=== PATIENT | male | born 1970 | race Caucasian/White ===

== ENCOUNTER 2016-08-02 15:04 | Emergency (ER) | payer SELFPAY ==
[2016-08-02] MEDS ORDERED: ALPRAZolam 0.25 MG TAB ONE ×2 (15:55→15:56)
[2016-08-02 15:59] LABS: Amphetamine Not Detected (NotDetected); Barbiturates Screen Not Detected (NotDetected); Benzodiazepine Screen Detected (NotDetected); Cocaine Metabolite Screen Not Detected (NotDetected); Medtox Control Line Valid? VALID (VALID); Methadone Not Detected (NotDetected); Methamphetamine Not Detected (NotDetected); Opiate Screen Not Detected (NotDetected); Oxycodone Screen Not Detected (NotDetected); Phencyclidine (PCP) Not Detected (NotDetected); THC/Cannabinoid Screen Not Detected (NotDetected); Tricyclic Screen Not Detected (NotDetected)
--- NOTE | 2016-08-02 16:14 | ERRECORD ---
[facility] EMERGENCY RECORD HPI PSYCHIATRIC (15:31 SHAN) CHIEF COMPLAINT: Patient presents for evaluation of agitation. HISTORIAN: History provided by patient. SEVERITY: Maximum severity of symptoms moderate, Currently symptoms are moderate. ROS (15:32 SHAN) CONSTITUTIONAL: Negative constitutional review of systems, Historian denies chills, denies fever. EYES: Negative eye review of systems. ENT: Negative ears, nose, throat review of systems. CARDIOVASCULAR: Negative cardiovascular review of systems, Historian denies chest pain, denies palpitations. RESPIRATORY: Negative respiratory review of systems, Historian denies cough, denies shortness of breath. GI: Negative gastrointestinal review of systems, Historian denies abdominal pain, denies constipation, denies diarrhea. MUSCULOSKELETAL: Negative musculoskeletal review of systems. SKIN: Negative skin review of systems. NEUROLOGIC: Negative neurologic review of systems. ENDOCRINE: Negative endocrine review of systems. HEMO/LYMPHATIC: Normal hematologic/lymphatic system review. PSYCHIATRIC: Historian reports anxiety, reports emotional lability. NOTES: All other ROS is negative except as listed in HPI. PAST MEDICAL HISTORY MEDICAL HISTORY: Flu vaccine up to date, Tetanus immunization up to date, Pneumococcal vaccine up to date, Past medical history includes history of hypertension, CHRONIC BACK - NEUROPATHY. Renal Disease Stage II. VERIFIED 03/04/16. VERIFIED 06/08/16. (TueAug 02, 2016 15:19 MDEB) MALE SURGICAL HISTORY: Surgical history of cholecystectomy, FUSION L-5/S-1, RIGHT KNEE LAMMY L4-5/ S1 X 2, Surgical history of appendectomy, Surgical history of tonsillectomy. Plate in Right Hand. VERIFIED 03/04/16. VERIFIED 06/08/16. (TueAug 02, 2016 15:19 MDEB) PSYCHIATRIC HISTORY: Psychiatric history includes, anxiety, Notes: DEPRESSION ANGER EXPLOSIVE DO. anxiety. VERIFIED 03/04/16. (TueAug 02, 2016 15:19 MDEB) SOCIAL HISTORY: Patient drinks socially, Patient is a former drug user, Patient currently uses tobacco, smokes cigarettes, Patient smokes 1.5 packs per day, Lives at home, with family, Patient drinks socially, Patient is a former drug user, Patient currently uses tobacco, smokes cigarettes, daily, Patient smokes 1.5 packs per day, Lives at home, with family, Patient is a former drug user, abused marijuana, Drug history notes: k2, Patient currently uses tobacco, smokes cigarettes, daily, Patient smokes 2 packs per day, &a-1R&a+25V*p+0X*t6581V*c202B*c15G*c2P*p-0X&a-25V&a+1R Name: Lenny Muller : 1970 M46 MedRec: [id number] AcctNum: [id number] Prepared: TueAug 02, 2016 16:24 by Interface Page 1 of 4 pMD [facility] EMERGENCY RECORD Lives at home, with family, Patient drinks socially, Patient formerly uses drugs, abuses marijuana, Drug history notes: K2. PT HAS "BEEN CLEAN FOR ABOUT ONE YEAR". Patient currently uses tobacco, Patient smokes 1.5 packs per day. (TueAug 02, 2016 15:19 MDEB) FAMILY HISTORY: Family istory is not significant, Family history is non-contributory to this case. (TueAug 02, 2016 15:19 MDEB) NOTES: I have reviewed and agree with the PMH/PSxH/FamHx/SocHx obtained by the nurse. (15:32 SHAN) KNOWN ALLERGIES codeine (Unconfirmed) codeine sulfate: - TAKES BENADRY WITH IT CURRENT MEDICATIONS No recorded medications VITAL SIGNS (15:17 MDEB) VITAL SIGNS: BP: 154/90, Pulse: 99, Resp: 20, Temp: 98.9 (Oral), Pain: 0, O2 sat: 99 on Room Air, Time: 08/02/2016 15:17. PHYSICAL EXAM (15:32 SHAN) CONSTITUTIONAL: Vital signs reviewed, Patient appears non toxic, Patient alert and oriented to person, place and time, Pt is in no apparent distress. HEAD: Head exam included findings of head atraumatic, normocephalic. EYES: Eye exam included findings of eyelids normal to inspection, Pupils equally round and reactive to light, Extraocular muscles intact. ENT: ENT exam normal, Nose exam normal, no nasal deformity, no bleeding from nares, Pharynx exam normal, Mouth exam normal, mucous membranes moist. NECK: Neck exam included findings of normal range of motion, Trachea midline. RESPIRATORY CHEST: Respiratory and chest exam normal, Breath sounds clear, No wheezing, No rales, Chest exam included findings of chest movement symmetrical, Chest expansion equal. CARDIOVASCULAR: Cardiovascular assessment normal, Cardiovascular exam included findings of heart rate regular rate and rhythm, Heart sounds normal. ABDOMEN MALE: Abdominal exam included findings of abdomen nontender, Bowel sounds normal, no mass, no pulsatile masses, no peritoneal signs, no rigidity, no guarding, no rebound. BACK: Back exam included findings of normal inspection, range of motion normal, no costovertebral angle tenderness. UPPER EXTREMITY: Upper extremity exam included findings of inspection normal, Range of motion normal. LOWER EXTREMITY: Lower extremity exam included findings of inspection normal, Range of motion normal. &a-1R&a+25V*p+0X*z0780J*c202B*c15G*c2P*p-0X&a-25V&a+1R Name: Lenny Muller : 1970 M46 MedRec: [id number] AcctNum: [id number] Prepared: TueAug 02, 2016 16:24 by Interface Page 2 of 4 pMD [facility] EMERGENCY RECORD NEURO: Neuro exam findings include patient oriented to person, place and time, Speech normal, no focal motor deficits, no focal sensory deficits. SKIN: Skin exam included findings of skin warm, dry, and normal in color. LYMPHATIC: Lymphatic exam normal. PSYCHIATRIC: Well oriented, clearly anxious, agitated. MEDICATION ADMINISTRATION SUMMARY Drug Name: Xanax, Dose Ordered: 1 tab(s), Route: Oral, Status: Given, Time: 16:00 08/02/2016, Detailed record available in Medication Service section. DOCTOR NOTES TEXT: Adult male with hx of drug abuse, states 'clean for two years'. Recently provider fired him. Unclear of details. Has been out of meds for two weeks. States his prior psychiatrist is not practicing now. Having increased anger, agitation, and impulses. (15:33 SHAN) Specifically asked and denied self harm ideations. (16:08 SHAN) Explained to patient that it is very important that he not exceed the doseages and that he obtain his future medications from the psychiatrist. (16:19 SHAN) DATA REVIEWED: Lab data reviewed, Old records obtained. (16:08 SHAN) PROBLEM LIST No recorded problems DIAGNOSIS (16:03 SHAN) FINAL: PRIMARY: impulse control disorder, ADDITIONAL: anger management problem, Anxiety. PRESCRIPTION Xanax: TABLET : 1 mg : ORAL : Quantity: 1 Unit: tab(s) Route: ORAL Schedule: See Notes Dispense: 70 May substitute. Refills: No Refills . (16:04 LEONORA) NOTES: 1/2 to 1 three times a day; if needed seventy per month maximum No Refills. (16:04 LEONORA) TEGretol: TABLET : 200 mg : ORAL : Quantity: 1 Unit: tab(s) Route: ORAL Schedule: 3 times a day Dispense: 90 Unit: tab(s) May substitute. Refills: No Refills . (16:05 LEONORA) NOTES: No Refills. (16:05 LEONORA) SINEquan: CAPSULE : 100 mg : ORAL : Quantity: 1 Unit: cap(s) Route: ORAL Schedule: See Notes Dispense: 60 Unit: cap(s) &a-1R&a+25V*p+0X*a9190L*c202B*c15G*c2P*p-0X&a-25V&a+1R Name: Lenny Muller : 1970 6 MedRec: [id number] AcctNum: [id number] Prepared: TueAug 02, 2016 16:24 by Interface Page 3 of 4 pMD [facility] EMERGENCY RECORD May substitute. Refills: No Refills . (16:06 LEONORA) NOTES: 1 or 2 at bedtime No Refills. (16:06 LEONORA) DISPOSITION PATIENT: Disposition Type: Discharge, Disposition: *Discharge Home. (16:03 LEONORA) Patient left the department. (16:21 SEEMA) Hernandez: SEEMA=DENISE Kim, Desi LEA=MD Trivedi Stanley &a-1R&a+25V*p+0X*i1708H*c202B*c15G*c2P*p-0X&a-25V&a+1R Name: Lenny Muller : 1970 6 MedRec: [id number] AcctNum: [id number] Prepared: Zofia Aug 02, 2016 16:24 by Interface Page 4 of 4 pMD MTDD
--- NOTE | 2016-08-02 16:20 | PICIS ---
[facility] EMERGENCY RECORD TRIAGE (TueAug 02, 2016 15:19 MDEB) PATIENT: NAME: Lenny Muller, AGE: 46, GENDER: male, : Sun 1970, TIME OF GREET: TueAug 02, 2016 15:05, PREFERRED LANGUAGE: Cymraes, RACE: WHITE, ETHNICITY: Not or , FALL RISK: NO, ECODE BILLING MAP: [facility] ER, SSN: [id number], Zip Code: [address], KG WEIGHT: [phone], PHONE: , , , PERSON ID: [id number], PCP: Sebastien VERNON AUBREY. (TueAug 02, 2016 15:19 MDEB) TRIAGE NOTES: ANXIETY - OUT OF MEDS. (TueAug 02, 2016 15:19 MDEB) COMPLAINT: ANXIETY. (TueAug 02, 2016 15:19 MDEB) ADMISSION: URGENCY: 4 Non Urgent, ADMISSION SOURCE: Home, TRANSPORT: Walk-in, BED: TRIAGE. (TueAug 02, 2016 15:19 MDEB) IMMUNIZATIONS: Tetanus immunization up to date. (TueAug 02, 2016 15:19 MDEB) TRIAGE SCREENING: Patient denies suicidal ideation, Patient denies presence of domestic violence. (TueAug 02, 2016 15:19 MDEB) PROVIDERS: TRIAGE NURSE: Desi Kim RN. (TueAug 02, 2016 15:19 MDEB) VITAL SIGNS: BP 154/90, Pulse 99, Resp 20, Temp 98.9, (Oral), Pain 0, O2 Sat 99, on Room Air, Time 08/02/2016 15:17. (15:17 MDEB) PREVIOUS VISIT ALLERGIES: codeine sulfate. (TueAug 02, 2016 15:19 MDEB) KNOWN ALLERGIES codeine (Unconfirmed) codeine sulfate: - TAKES BENADRY WITH IT CURRENT MEDICATIONS No recorded medications VITAL SIGNS (15:17 MDEB) VITAL SIGNS: BP: 154/90, Pulse: 99, Resp: 20, Temp: 98.9 (Oral), Pain: 0, O2 sat: 99 on Room Air, Time: 08/02/2016 15:17. NURSING ASSESSMENT: HEAD-TO-TOE (15:23 MDEB) CONSTITUTIONAL: Patient arrives ambulatory, Gait steady, History obtained from patient, Patient appears, anxious, uncomfortable, Patient cooperative, Patient alert, Oriented to person, place and time, Skin warm, Skin dry, Skin normal in color, Mucous membranes pink, Mucous membranes moist, Patient is well-groomed, Patient complains of ANXIETY, PT REPORTS BEING OUT OF MEDS - HIS PCP TOLD HIM HE NEEDED TO BE SEEN BY PSYCHIATRIST FOR FURTHER MEDICATIONS. PREENTS NOW TELLING ER PHYSICIAN THAT DR MEDEL USUALLY FILLS HIS MEDS WHEN HE CANT GET THEM FILLED ANY OTHER PLACE. SKIN: Skin assessment findings include skin warm, Skin dry, Skin normal in color. NEURO: Pupils equally round and reactive to light, Able to close &a-1R&a+25V*p+0X*d7747F*c202B*c15G*c2P*p-0X&a-25V&a+1R Name: Lenny Muller : 1970 M46 MedRec: [id number] AcctNum: [id number] Prepared: TueAug 02, 2016 16:30 by Interface Page 1 of 6 pMD [facility] EMERGENCY RECORD eyes, Face symmetrical, Speech normal, GCS:, Eye opening: (4) - Spontaneous, Verbal: (5) - Oriented/conversive, Motor: (6) - Obeys commands/Spontaneous, GCS Total: 15. ENT: Ear assessment findings include ear normal to inspection, Nasal assessment findings include nose normal to inspection, Mouth and throat assessment findings include mouth inspection normal, Notes: FACE RED. NECK: Neck assessment findings include trachea midline. RESPIRATORY/CHEST: Respiratory assessment findings include respiratory effort easy, Respirations regular, Conversing normally, Neck and chest exam findings include trachea midline, Chest expansion equal, Chest movement symmetrical. ABDOMEN: Abdomen assessment findings include abdomen symmetrical, Abdomen soft. GENITOURINARY MALE: Notes: DEFERRED AT THIS TIME. LEFT UPPER EXTREMITY: Left upper extremity assessment findings include capillary refill less than 2 seconds, Skin color normal to hand, Skin temperature to hand warm, Distal sensation intact, Muscle tone normal. RIGHT UPPER EXTREMITY: Right upper extremity assessment findings include capillary refill less than 2 seconds, Skin color normal to hand, Skin temperature to hand warm, Distal sensation intact, Muscle tone normal. LEFT LOWER EXTREMITY: Notes: BOUNCING LEG CONTINUOUSLY. RIGHT LOWER EXTREMITY: Notes: BOUNCING LEG CONTINUOUSLY. NOTES: Emotional support needed and given, Patient tolerated procedure well. SAFETY: Call light within reach, Hospital ID band on. ORDER DETAILS Order Name: Drug Screen, Urine, Status: Active, Time: 15:30 08/02/2016, User: LEONORA, - Ordered for: MD Trivedi Stanley, - Entered by: MD Trivedi Stanley - TueAug 02, 2016 15:30, - Quantity: 1. MEDICATION ADMINISTRATION SUMMARY Drug Name: Xanax, Dose Ordered: 1 tab(s), Route: Oral, Status: Given, Time: 16:00 08/02/2016, Detailed record available in Medication Service section. MEDICATION SERVICE (16:00 ) Xanax: Order: Xanax (alprazolam) - Dose: 1 tab(s) : Oral Schedule: Now Ordered by: Tae Trivedi MD Entered by: Tae Trivedi MD TueAug 02, 2016 15:31 &a-1R&a+25V*p+0X*d5883D*c202B*c15G*c2P*p-0X&a-25V&a+1R Name: Lenny Muller : 1970 M46 MedRec: [id number] AcctNum: [id number] Prepared: TueAug 02, 2016 16:30 by Interface Page 2 of 6 pMD [facility] EMERGENCY RECORD Documented as given by: Desi Kim RN TueAug 02, 2016 16:00 Patient, Medication, Dose, Route and Time verified prior to administration. Amount given: 2 MG, Site: Medication administered P.O., Correct patient, time, route, dose and medication confirmed prior to administration, Patient advised of actions and side-effects prior to administration, Allergies confirmed and medications reviewed prior to administration, Patient in position of comfort, Side rails up, Cart in lowest position, Family at bedside. HPI PSYCHIATRIC (15:31 LEONORA) CHIEF COMPLAINT: Patient presents for evaluation of agitation. HISTORIAN: History provided by patient. SEVERITY: Maximum severity of symptoms moderate, Currently symptoms are moderate. ROS (15:32 LEONORA) CONSTITUTIONAL: Negative constitutional review of systems, Historian denies chills, denies fever. EYES: Negative eye review of systems. ENT: Negative ears, nose, throat review of systems. CARDIOVASCULAR: Negative cardiovascular review of systems, Historian denies chest pain, denies palpitations. RESPIRATORY: Negative respiratory review of systems, Historian denies cough, denies shortness of breath. GI: Negative gastrointestinal review of systems, Historian denies abdominal pain, denies constipation, denies diarrhea. MUSCULOSKELETAL: Negative musculoskeletal review of systems. SKIN: Negative skin review of systems. NEUROLOGIC: Negative neurologic review of systems. ENDOCRINE: Negative endocrine review of systems. HEMO/LYMPHATIC: Normal hematologic/lymphatic system review. PSYCHIATRIC: Historian reports anxiety, reports emotional lability. NOTES: All other ROS is negative except as listed in HPI. PAST MEDICAL HISTORY MEDICAL HISTORY: Flu vaccine up to date, Tetanus immunization up to date, Pneumococcal vaccine up to date, Past medical history includes history of hypertension, CHRONIC BACK - NEUROPATHY. Renal Disease Stage II. VERIFIED 03/04/16. VERIFIED 06/08/16. (TueAug 02, 2016 15:19 MDEB) MALE SURGICAL HISTORY: Surgical history of cholecystectomy, FUSION L-5/S-1, RIGHT KNEE LAMMY L4-5/ S1 X 2, Surgical history of appendectomy, Surgical history of tonsillectomy. Plate in Right Hand. VERIFIED 03/04/16. VERIFIED 06/08/16. (TueAug 02, 2016 15:19 MDEB) PSYCHIATRIC HISTORY: Psychiatric history includes, anxiety, Notes: DEPRESSION &a-1R&a+25V*p+0X*g2175C*c202B*c15G*c2P*p-0X&a-25V&a+1R Name: Lenny Muller Juan : 1970 M46 MedRec: [id number] AcctNum: [id number] Prepared: TueAug 02, 2016 16:30 by Interface Page 3 of 6 pMD [facility] EMERGENCY RECORD ANGER EXPLOSIVE DO. anxiety. VERIFIED 03/04/16. (TueAug 02, 2016 15:19 MDEB) SOCIAL HISTORY: Patient drinks socially, Patient is a former drug user, Patient currently uses tobacco, smokes cigarettes, Patient smokes 1.5 packs per day, Lives at home, with family, Patient drinks socially, Patient is a former drug user, Patient currently uses tobacco, smokes cigarettes, daily, Patient smokes 1.5 packs per day, Lives at home, with family, Patient is a former drug user, abused marijuana, Drug history notes: k2, Patient currently uses tobacco, smokes cigarettes, daily, Patient smokes 2 packs per day, Lives at home, with family, Patient drinks socially, Patient formerly uses drugs, abuses marijuana, Drug history notes: K2. PT HAS "BEEN CLEAN FOR ABOUT ONE YEAR". Patient currently uses tobacco, Patient smokes 1.5 packs per day. (TueAug 02, 2016 15:19 MDEB) FAMILY HISTORY: Family istory is not significant, Family history is non-contributory to this case. (TueAug 02, 2016 15:19 MDEB) NOTES: I have reviewed and agree with the PMH/PSxH/FamHx/SocHx obtained by the nurse. (15:32 SHAN) PHYSICAL EXAM (15:32 SHAN) CONSTITUTIONAL: Vital signs reviewed, Patient appears non toxic, Patient alert and oriented to person, place and time, Pt is in no apparent distress. HEAD: Head exam included findings of head atraumatic, normocephalic. EYES: Eye exam included findings of eyelids normal to inspection, Pupils equally round and reactive to light, Extraocular muscles intact. ENT: ENT exam normal, Nose exam normal, no nasal deformity, no bleeding from nares, Pharynx exam normal, Mouth exam normal, mucous membranes moist. NECK: Neck exam included findings of normal range of motion, Trachea midline. RESPIRATORY CHEST: Respiratory and chest exam normal, Breath sounds clear, No wheezing, No rales, Chest exam included findings of chest movement symmetrical, Chest expansion equal. CARDIOVASCULAR: Cardiovascular assessment normal, Cardiovascular exam included findings of heart rate regular rate and rhythm, Heart sounds normal. ABDOMEN MALE: Abdominal exam included findings of abdomen nontender, Bowel sounds normal, no mass, no pulsatile masses, no peritoneal signs, no rigidity, no guarding, no rebound. BACK: Back exam included findings of normal inspection, range of motion normal, no costovertebral angle tenderness. UPPER EXTREMITY: Upper extremity exam included findings of inspection normal, Range of motion normal. LOWER EXTREMITY: Lower extremity exam included findings of inspection normal, Range of motion normal. NEURO: Neuro exam findings include patient oriented to person, &a-1R&a+25V*p+0X*j0816B*c202B*c15G*c2P*p-0X&a-25V&a+1R Name: Lenny Muller : 1970 M46 MedRec: [id number] AcctNum: [id number] Prepared: TueAug 02, 2016 16:30 by Interface Page 4 of 6 pMD [facility] EMERGENCY RECORD place and time, Speech normal, no focal motor deficits, no focal sensory deficits. SKIN: Skin exam included findings of skin warm, dry, and normal in color. LYMPHATIC: Lymphatic exam normal. PSYCHIATRIC: Well oriented, clearly anxious, agitated. EVENTS TRANSFER: Triage to Emergency Triage. (TueAug 02, 2016 15:19 MDJONE) Emergency Triage to Main ED -04. (15:28 SEEMA) Removed from Emergency Main ED -04. (16:21 SEEMA) DOCTOR NOTES TEXT: Adult male with hx of drug abuse, states 'clean for two years'. Recently provider fired him. Unclear of details. Has been out of meds for two weeks. States his prior psychiatrist is not practicing now. Having increased anger, agitation, and impulses. (15:33 LEONORA) Specifically asked and denied self harm ideations. (16:08 LEONORA) Explained to patient that it is very important that he not exceed the doseages and that he obtain his future medications from the psychiatrist. (16:19 LEONORA) DATA REVIEWED: Lab data reviewed, Old records obtained. (16:08 SHAN) PROBLEM LIST No recorded problems DIAGNOSIS (16:03 LEONORA) FINAL: PRIMARY: impulse control disorder, ADDITIONAL: anger management problem, Anxiety. DISPOSITION PATIENT: Disposition Type: Discharge, Disposition: *Discharge Home. (16:03 LEONORA) Patient left the department. (16:21 SEEMA) INSTRUCTION (16:07 LEONORA) DISCHARGE: ANXIETY REACTION. FOLLOWUP: Sebastien VERNON, [facility] [address], [phone]. SPECIAL: 1. medications as directed, LESS if drousy 2. For long-term care, these meds should be prescribed and followed by the psychiatrist; please set one up as soon as possible. PRESCRIPTION Xanax: TABLET : 1 mg : ORAL : Quantity: 1 Unit: tab(s) Route: ORAL Schedule: See Notes Dispense: 70 &a-1R&a+25V*p+0X*b4987H*c202B*c15G*c2P*p-0X&a-25V&a+1R Name: Lenny Muller : 1970 6 MedRec: [id number] AcctNum: [id number] Prepared: TueAug 02, 2016 16:30 by Interface Page 5 of 6 pMD [facility] EMERGENCY RECORD May substitute. Refills: No Refills . (16:04 LEONORA) NOTES: 1/2 to 1 three times a day; if needed seventy per month maximum No Refills. (16:04 LEONORA) TEGretol: TABLET : 200 mg : ORAL : Quantity: 1 Unit: tab(s) Route: ORAL Schedule: 3 times a day Dispense: 90 Unit: tab(s) May substitute. Refills: No Refills . (16:05 LEONORA) NOTES: No Refills. (16:05 LEONORA) SINEquan: CAPSULE : 100 mg : ORAL : Quantity: 1 Unit: cap(s) Route: ORAL Schedule: See Notes Dispense: 60 Unit: cap(s) May substitute. Refills: No Refills . (16:06 LEONORA) NOTES: 1 or 2 at bedtime No Refills. (16:06 LEONORA) IMAGING (16:26 JPAR) *DISCHARGE INSTRUCTIONS RECEIPT: Image captured from scanner. *SUPPLY CHARGE SHEET: Image captured from scanner. ADMIN DIGITAL SIGNATURE: MD Trivedi Stanley. (16:08 LEONORA) MD Trivedi Stanley. (16:20 LEONORA) Hernandez: HAMMAD=EDVIN Lewis Julia MDEB=DENISE Kim, Desi LEA=MD Trivedi Stanley &a-1R&a+25V*p+0X*p3210G*c202B*c15G*c2P*p-0X&a-25V&a+1R Name: Lenny Muller : 1970 6 MedRec: [id number] AcctNum: [id number] Prepared: Mon Aug 02, 2016 16:30 by Interface Page 6 of 6 pMD MTDD
== END 2016-08-02 16:20 | disposition home or self-care (01) ==
LOC: MADERS 15:04
DX: F63.9 Impulse disorder, unspecified (principal); R45.4 Irritability and anger; F41.9 Anxiety disorder, unspecified; I10 Essential (primary) hypertension; F17.210 Nicotine dependence, cigarettes, uncomplicated
CPT/HCPCS: 80306; 99284

== ENCOUNTER 2016-08-15 19:14 | Emergency (ER) | payer SELFPAY ==
[~2016-08-15 19:14] MED LIST: Sodium Chloride 0.9% 1,000 ML BAG ONE
[2016-08-15] MEDS ORDERED: Ondansetron HCl/PF 4 MG/2 ML Vial ONE (19:47)
[2016-08-15] MEDS ORDERED: Ketorolac Tromethamine 30 MG/ML VIAL ONE (19:47)
[2016-08-15 19:51] LABS: Bilirubin Negative (Negative); Blood, Urine Large (Negative); Clarity Slightly Cloudy (Clear); Glucose, Urine (Dipstick) Negative (Negative); Leukocyte Negative (Negative); Nitrite Negative (Negative); Protein, Urine (Dipstick) Trace mg/dL (Neg-Trace); Urobilinogen 0.2 mg/dL (0.2-1.0)
[2016-08-15 19:52] LABS: Bacteria/HPF Rare-Few HPF (None Seen); RBC/HPF GREATER THAN 50-TNTC HPF (0-3)
[2016-08-15 20:03] LABS: #Basophils 0.1 thou/uL (0.0-0.2); #Eosinphils 0.2 thou/uL (0.0-0.7); #Lymphocytes 4.1 thou/uL (1.20-3.40); #Monocytes 0.9 thou/uL (0.11-0.59); #Neutrophils 7.3 thou/uL (1.40-6.50); %Basophils 0.8 % (0.0-1.0); %Eosinophils 1.9 % (0.0-10.0); %Lymphocytes 32.7 % (21.0-51.0); %Monocytes 6.9 % (0.0-10.0); %Neutrophils 57.7 % (42.0-75.0); Hemoglobin 13.6 g/dL (14.0-18.0); Mean Corpuscular Hemoglobin 31.1 pg (27.0-31.0); Mean Corpuscular Volume 88.9 fl (80.0-94.0); Mean Platelet Volume 7.7 fL (7.4-10.4); Platelet Count 283 thou/uL (130-400); Red Blood Cell (RBC) Count 4.37 mill/uL (4.70-6.10); White Blood Cell (WBC) Count 12.6 thou/uL (4.8-10.8)
[2016-08-15 20:25] LABS: ALT (SGPT) 18 U/L (0-55); AST (SGOT) 16 U/L (5-34); Alkaline Phosphatase 81 U/L (40-150); Anion Gap 17 mmol/L (10-20); BUN (Urea Nitrogen) 18 mg/dL (8.9-20.6); Bilirubin, Total Less than 0.3 mg/dL (0.2-1.2); Calc. Creatinine Clearance 0 mL/min (70-130); Carbon Dioxide 24 mmol/L (22-29); Chloride 103 mmol/L (98-107); Estimated GFR-MDRD 68; Globulin 2.4 g/dL (2.4-3.5); Glucose 103 mg/dL (70-105); Potassium 4.2 mmol/L (3.5-5.1); Protein, Total 6.4 g/dL (6.0-8.3); Sodium 140 mmol/L (136-145)
[2016-08-15] MEDS ORDERED: HYDROcodone/Acetaminophen 10/325 mg Tablet ONE (20:30)
--- NOTE | 2016-08-15 20:33 | ERRECORD ---
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 sudden and severe. crampy. wax and wane but never fully clears. HISTORIAN: History provided by patient, friend. LOCATION MALE: Symptoms are localized. QUALITY: Pain is dull in nature, described as aching, described as BECOMES SHARP WITH MOVEMENT OR PALPATION. SEVERITY: Maximum severity of symptoms severe, Currently symptoms are moderate. TIME COURSE: Sudden onset of symptoms, There has been no change in the patient's symptoms over time, are constant. ASSOCIATED WITH MALE: Associated with loss of appetite, Associated with nausea, Associated with urinary tract infection signs or symptoms, dysuria, No associated vomiting. EXACERBATED BY: Patient's condition exacerbated by nothing. RELIEVED BY: Patient's condition relieved by nothing. ROS CONSTITUTIONAL: Negative constitutional review of systems, Historian denies chills. (19:47 LLDO) EYES: Negative eye review of systems, Historian denies eye pain, denies eye redness, denies eye discharge. (19:51 LLDO) ENT: Negative ears, nose, throat review of systems, Historian denies otalgia, denies rhinorrhea, denies sinus pain, denies sore throat. (19:51 LLDO) CARDIOVASCULAR: Negative cardiovascular review of systems, Historian denies chest pain, no radiation, Historian denies diaphoresis, denies paroxysmal nocturnal dyspnea, denies syncope. (19:51 LLDO) RESPIRATORY: Historian reports cough, reports sputum. described as thick, yellow, Historian denies stridor, denies wheezing. has had cough and chest congestion for about a week. some headache and some sore throat d.t. post-nasal drainage. (19:51 LLDO) GI: Historian reports abdominal pain, reports anorexia, reports appetite changes, denies constipation, denies diarrhea, denies hematemesis, denies hematochezia, denies jaundice, denies melena, reports nausea, denies stool changes, denies vomiting. (19:47 LLDO) GENITOURINARY MALE: Historian reports dysuria. (19:47 LLDO) MUSCULOSKELETAL: Historian reports back pain. (19:47 LLDO) NEUROLOGIC: Negative neurologic review of systems, Historian denies confusion, denies focal weakness, denies mental status changes, denies sensory changes. (19:51 LLDO) &a-1R&a+25V*p+0X*v6400W*c202B*c15G*c2P*p-0X&a-25V&a+1R Name: Lenny Muller : 1970 6 MedRec: [id number] AcctNum: [id number] Prepared: Dana Aug 15, 2016 20:42 by Interface Page [address] [facility] EMERGENCY RECORD HEMO/LYMPHATIC: Normal hematologic/lymphatic system review, Historian denies abnormal blood clotting, denies gum bleeding, denies petechiae. (19:51 LLDO) ALLERGIC/IMMUNOLOGIC: Normal allergy/immunologic system review, Historian denies eczema, denies environmental allergies, denies food allergies. (19:51 LLDO) PSYCHIATRIC: Negative psychiatric review of systems, Historian denies alcohol abuse, denies anxiety, denies depression, denies drug abuse, denies hallucinations. (19:51 LLDO) NOTES: All systems reviewed, negative except as described above. (19:47 LLDO) PAST MEDICAL HISTORY MEDICAL HISTORY: Flu vaccine not up to date, Tetanus immunization up to date, Pneumococcal vaccine up to date, Past medical history includes history of hypertension, CHRONIC BACK - NEUROPATHY. Renal Disease Stage II. (19:25 CJEF) MALE SURGICAL HISTORY: Surgical history of cholecystectomy, FUSION L-5/S-1, RIGHT KNEE LAMMY L4-5/ S1 X 2, Surgical history of appendectomy, Surgical history of tonsillectomy. Plate in Right Hand. VERIFIED 03/04/16. VERIFIED 06/08/16. (19:25 CJEF) PSYCHIATRIC HISTORY: Psychiatric history includes, anxiety, Notes: DEPRESSION ANGER EXPLOSIVE DO. anxiety. (19:25 CJEF) SOCIAL HISTORY: Patient drinks socially, Patient is a former drug user, Patient currently uses tobacco, smokes cigarettes, Patient smokes 1.5 packs per day, Lives at home, with family, Patient drinks socially, Patient is a former drug user, Patient currently uses tobacco, smokes cigarettes, daily, Patient smokes 1.5 packs per day, Lives at home, with family, Patient is a former drug user, abused marijuana, Drug history notes: k2, Patient currently uses tobacco, smokes cigarettes, daily, Patient smokes 2 packs per day, Lives at home, with family, Patient drinks socially, Patient formerly uses drugs, abuses marijuana, Drug history notes: K2. PT HAS "BEEN CLEAN FOR ABOUT ONE YEAR". Patient currently uses tobacco, Patient smokes 1.5 packs per day. (19:25 CJEF) FAMILY HISTORY: Family istory is not significant, Family history is non-contributory to this case. (19:25 CJEF) NOTES: Nursing records reviewed, Agree with nursing records, Medication list reviewed. (19:51 LLDO) KNOWN ALLERGIES codeine (Unconfirmed) codeine sulfate: - TAKES BENADRY WITH IT CURRENT MEDICATIONS Xanax: TABLET : Strength - 1 mg : ORAL Patient Dose: 1 tab(s) Oral See Notes.1/2 to 1 three times &a-1R&a+25V*p+0X*f6618Y*c202B*c15G*c2P*p-0X&a-25V&a+1R Name: Lenny Muller : 1970 M46 MedRec: [id number] AcctNum: [id number] Prepared: Dana Aug 15, 2016 20:42 by Interface Page [address] [facility] EMERGENCY RECORD a day; if neededseventy per month maximum. (19:22 CJ) TEGretol: TABLET : Strength - 200 mg : ORAL Patient Dose: 1 tab(s) Oral 3 times a day. (Dana Aug 15, 2016 19:22 CJEF) SINEquan: CAPSULE : Strength - 100 mg : ORAL Patient Dose: 1 cap(s) Oral See Notes.1 or 2 at bedtime. (19:22 CJEF) gabapentin: CAPSULE : Strength - 300 mg : ORAL Patient Dose: 1 tab(s) Oral 3 times a day. (19:22 CJEF) carBAMazepine: CAPSULE,EXTENDED RELEASE MULTIPHASE 12HR : Strength - 200 mg : ORAL Patient Dose: 3 tab(s) Oral 2 times a day. (19:23 CJEF) nortriptyline: CAPSULE : Strength - 50 mg : ORAL Patient Dose: 150 mg Oral once a day (at bedtime).UNSURE OF EXACT DOSE. (19:23 CJEF) meTOPROLOL tartrate: TABLET : Strength - 25 mg : ORAL Patient Dose: 1 tab(s) Oral once a day (at bedtime).NON-COMPLIANT. (19:24 CJEF) VITAL SIGNS VITAL SIGNS: BP: 133/79, Pulse: 89, Resp: 18, Temp: 97.9 (Tympanic), Pain: 7, O2 sat: 97 on Room Air, Time: 08/15/2016 19:19. (19:19 CJEF) BP: 128/76, Pulse: 86, Resp: 18, O2 sat: 96 on Room Air, Time: 08/15/2016 19:40. (19:40 CJEF) BP: 156/80, Pulse: 78, Resp: 18, Temp: 97.5 (Tympanic), Pain: 7, O2 sat: 96 on Room Air, Time: 08/15/2016 20:25. (20:25 CJEF) PHYSICAL EXAM CONSTITUTIONAL: Vital signs reviewed, Patient afebrile, Pulse normal, Blood pressure normal, Respiratory rate normal, Patient appears, uncomfortable, Patient appears in pain, in moderate pain distress, INTERMITTENTLY SEVERE, Patient alert and oriented to person, place and time. (19:49 LLDO) HEAD: Head exam normal, Head exam included findings of head atraumatic, normocephalic. (19:51 LLDO) EYES: Eye exam normal, Eye exam included findings of eyelids normal to inspection, Pupils equally round and reactive to light, Extraocular muscles intact. (19:51 LLDO) ENT: ENT exam normal, Ear exam normal, Nose exam normal. (19:51 LLDO) NECK: Neck exam normal, Neck exam included findings of normal range of motion, Trachea midline, no meningeal signs, no tenderness. (19:51 LLDO) &a-1R&a+25V*p+0X*f2570E*c202B*c15G*c2P*p-0X&a-25V&a+1R Name: Lenny Muller Juan : 1970 M46 MedRec: [id number] AcctNum: [id number] Prepared: Dana Aug 15, 2016 20:42 by Interface Page [address] [facility] EMERGENCY RECORD RESPIRATORY CHEST: Respiratory exam included findings of no respiratory distress, Breath sounds not clear, Rales present, Chest exam included findings of chest movement symmetrical, Chest expansion equal, no tenderness, RALES MILD AND DIFFUSE. (19:51 LLDO) CARDIOVASCULAR: Cardiovascular assessment normal, Cardiovascular exam included findings of heart rate regular rate and rhythm, Heart sounds normal. (19:51 LLDO) ABDOMEN MALE: Abdominal exam included findings of abdomen tender, to the right lower quadrant, mild intensity, Bowel sounds normal, Liver normal, Spleen normal, no distension, no mass, no pulsatile masses, no peritoneal signs, Rovsing's sign absent. (19:49 LLDO) BACK: Back exam included findings of normal inspection, range of motion normal, Costovertebral angle tenderness, on the right, no Scoliosis, no pain with straight leg raise. (19:49 LLDO) UPPER EXTREMITY: Upper extremity exam normal, Upper extremity exam included findings of inspection normal, Range of motion normal. (19:51 LLDO) LOWER EXTREMITY: Lower extremity exam normal, Lower extremity exam included findings of inspection normal, Range of motion normal. (19:51 LLDO) NEURO: Neuro exam normal, Neuro exam findings include patient oriented to person, place and time, Speech normal, [place] coma scale 15. (19:51 LLDO) SKIN: Skin exam normal, Skin exam included findings of skin warm, dry, and normal in color, no rash. (19:51 LLDO) PSYCHIATRIC: Psychiatric exam normal, Psychiatric exam included findings of patient oriented to person place and time, Normal affect, Judgment normal. (19:51 LLDO) MEDICATION ADMINISTRATION SUMMARY Drug Name: [place], Dose Ordered: 10-325 mg, Route: Oral, Status: Given, Time: 20:37 08/15/2016, Drug Name: Duramorph (PF), Dose Ordered: 4 mg, Route: IV Push, Status: Given, Time: 20:08 08/15/2016, Drug Name: Toradol injection, Dose Ordered: 30 mg, Route: IV Push, Status: Given, Time: 19:52 08/15/2016, Drug Name: Zofran intravenous, Dose Ordered: 8 mg, Route: IV Push, Status: Given, Time: 19:52 08/15/2016, Drug Name: *sodium chloride 0.9 % intravenous, Dose Ordered: 1 L, Route: IV Fluid Infusion, Status: Given, Time: 19:51 08/15/2016, *Additional information available in notes, Detailed record available in Medication Service section. DOCTOR NOTES (20:19 LLDO) TEXT: punctate stone at right UVJ. should pass soon. &a-1R&a+25V*p+0X*[id number]*c202B*c15G*c2P*p-0X&a-25V&a+1R Name: Lenny Muller : 1970 6 MedRec: [id number] AcctNum: [id number] Prepared: Dana Aug 15, 2016 20:42 by Interface Page [address] [facility] EMERGENCY RECORD PROBLEM LIST No recorded problems DIAGNOSIS (20:22 LLDO) FINAL: PRIMARY: ureteral stone w/ colic, R, ADDITIONAL: Acute bronchitis. PRESCRIPTION (20:24 LLDO) Cipro tablet: TABLET : 500 mg : ORAL : Quantity: 1 Unit: tab(s) Route: ORAL Schedule: 2 times a day Dispense: 20 May substitute. Refills: No Refills . NOTES: No Refills. Phenergan DM: SYRUP : : ORAL : Quantity: 1-2 Unit: teaspoon Route: ORAL Schedule: every 4 hours prn Dispense: 180 Unit: mL May substitute. Refills: No Refills . NOTES: ^s=No Refills No Refills. DISPOSITION PATIENT: Disposition Type: Discharge, Disposition: *Discharge Home. (20:22 LLDO) Patient left the department. (20:38 [facility]) Hernandez: SUZE=DENISE Lundy, Linda BAXTER=MD Valdez Lloyd &a-1R&a+25V*p+0X*f9996T*c202B*c15G*c2P*p-0X&a-25V&a+1R Name: Lenny Muller : 1970 6 MedRec: [id number] AcctNum: [id number] Prepared: Dana Aug 15, 2016 20:42 by Interface Page 5 of 5 pMD MTDD
--- NOTE | 2016-08-15 20:41 | PICIS ---
[facility] EMERGENCY RECORD TRIAGE ([place] Aug 15, 2016 19:22 CJEF) TRIAGE NOTES: PT REPORTS THAT HE THINKS HE HAS KIDNEY STONES, HE HAS HAD THEM BEFORE. PT REPORTS BURNING ON UNRINATION AND RIGHT FLANK PAIN. PT REPORTS THAT IT FEELS LIKE A KNIFE STABBING HIM IN THE KIDNEY. SYMTOMS STARTED APPROX 1.5 HOURS AGO. PT REPORTS INTERMITTENT WORSENING PAIN. ([place] Aug 15, 2016 19:22 CJEF) PATIENT: NAME: Lenny Muller, AGE: 46, GENDER: male, : [place] 1970, TIME OF GREET: [place] Aug 15, 2016 19:15, PREFERRED LANGUAGE: Dominican, ETHNICITY: Not or , FALL RISK: NO, ECODE BILLING MAP: [facility], SSN: [id number], Zip Code: [address], KG WEIGHT: [phone], PHONE: , , , PERSON ID: [id number], PCP: NONE. ([place] Aug 15, 2016 19:22 CJEF) COMPLAINT: KIDNEY STONES. ([place] Aug 15, 2016 19:22 CJEF) ADMISSION: URGENCY: 3 Urgent, ADMISSION SOURCE: Home, TRANSPORT: Walk-in, BED: TRIAGE. ([place] Aug 15, 2016 19:22 CJEF) ASSESSMENT: Assessment: RIGHT FLANK PAIN; POSSIBLE KIDNEY STONE. (19:25 CJEF) PAIN: Patient complains of pain described as, Location RIGHT FLANK PAIN. (19:25 CJEF) IMMUNIZATIONS: Flu vaccine not up to date, Tetanus immunization up to date, Pneumococcal vaccine up to date. (19:25 CJEF) SIRS SCORING: Heart Rate 55-109 (0), Temp range 96.8-101.1 (0), respiratory rate 12-24 (0), Mental Status altered: no (0), Infection or Suspected Infection: No. (19:25 CJEF) TRIAGE SCREENING: Patient denies suicidal ideation, Patient denies presence of domestic violence. (19:25 CJEF) PROVIDERS: TRIAGE NURSE: Linda Lundy RN. ([place] Aug 15, 2016 19:22 CJEF) VITAL SIGNS: BP 133/79, Pulse 89, Resp 18, Temp 97.9, (Tympanic), Pain 7, O2 Sat 97, on Room Air, Time 08/15/2016 19:19. (19:19 CJEF) PREVIOUS VISIT ALLERGIES: codeine sulfate. ([place] Aug 15, 2016 19:22 CJEF) codeine sulfate. (19:25 CJEF) KNOWN ALLERGIES codeine (Unconfirmed) codeine sulfate: - TAKES BENADRY WITH IT CURRENT MEDICATIONS Xanax: TABLET : Strength - 1 mg : ORAL Patient Dose: 1 tab(s) Oral See Notes.1/2 to 1 three times a day; if neededseventy per month maximum. (19:22 CJEF) TEGretol: TABLET : Strength - 200 mg : ORAL Patient Dose: 1 tab(s) Oral 3 times a day. ([place] Aug 15, 2016 19:22 CJEF) SINEquan: &a-1R&a+25V*p+0X*e9460E*c202B*c15G*c2P*p-0X&a-25V&a+1R Name: Lenny Muller Juan : 1970 M46 MedRec: [id number] AcctNum: [id number] Prepared: [place] Aug 15, 2016 20:50 by Interface Page 1 of 13 pMD [facility] EMERGENCY RECORD CAPSULE : Strength - 100 mg : ORAL Patient Dose: 1 cap(s) Oral See Notes.1 or 2 at bedtime. (19:22 CJEF) gabapentin: CAPSULE : Strength - 300 mg : ORAL Patient Dose: 1 tab(s) Oral 3 times a day. (19:22 CJEF) carBAMazepine: CAPSULE,EXTENDED RELEASE MULTIPHASE 12HR : Strength - 200 mg : ORAL Patient Dose: 3 tab(s) Oral 2 times a day. (19:23 CJEF) nortriptyline: CAPSULE : Strength - 50 mg : ORAL Patient Dose: 150 mg Oral once a day (at bedtime).UNSURE OF EXACT DOSE. (19:23 CJEF) meTOPROLOL tartrate: TABLET : Strength - 25 mg : ORAL Patient Dose: 1 tab(s) Oral once a day (at bedtime).NON-COMPLIANT. (19:24 CJEF) VITAL SIGNS VITAL SIGNS: BP: 133/79, Pulse: 89, Resp: 18, Temp: 97.9 (Tympanic), Pain: 7, O2 sat: 97 on Room Air, Time: 08/15/2016 19:19. (19:19 CJEF) BP: 128/76, Pulse: 86, Resp: 18, O2 sat: 96 on Room Air, Time: 08/15/2016 19:40. (19:40 CJEF) BP: 156/80, Pulse: 78, Resp: 18, Temp: 97.5 (Tympanic), Pain: 7, O2 sat: 96 on Room Air, Time: 08/15/2016 20:25. (20:25 CJEF) NURSING ASSESSMENT: ABDOMEN (19:25 CJEF) CONSTITUTIONAL: Complex assessment performed, Patient arrives ambulatory, Gait steady, History obtained from patient, Patient appears, anxious, in distress due to pain, Patient cooperative, Patient alert, Oriented to person, place and time, Skin warm, Skin dry, Skin normal in color, Mucous membranes pink, Mucous membranes moist, Patient is well-groomed, PT REPORTS THAT HE THINKS HE HAS KIDNEY STONES, HE HAS HAD THEM BEFORE. PT REPORTS BURNING ON UNRINATION AND RIGHT FLANK PAIN. PT REPORTS THAT IT FEELS LIKE A KNIFE STABBING HIM IN THE KIDNEY. SYMTOMS STARTED APPROX 1.5 HOURS AGO. PT REPORTS INTERMITTENT WORSENING PAIN. PAIN: aching pain, burning pain, to the right flank, to the suprapubic region, RIGHT FLANK PAIN THAT RADIATES TO RIGHT LOWER QUADRANT AND SUPRAPUBIC AREA, on a scale 0-10 patient rates pain as 7. ABDOMEN: Abdomen assessment findings include abdomen symmetrical, Abdomen soft, tender, to the right lower quadrant, to the right flank, suprapubic, Bowel sound normal, no associated nausea, no associated vomiting, no associated diarrhea, no associated constipation. GENITOURINARY MALE: Associated with urinary complaints described as, burning, difficulty urinating. &a-1R&a+25V*p+0X*z5258H*c202B*c15G*c2P*p-0X&a-25V&a+1R Name: Lenny Muller : 1970 M46 MedRec: [id number] AcctNum: [id number] Prepared: [place] Aug 15, 2016 20:50 by Interface Page 2 of 13 pMD [facility] EMERGENCY RECORD NOTES: Patient tolerated procedure well. SAFETY: Side rails up, Cart/Stretcher in lowest position, Family at bedside, Call light within reach, Hospital ID band on. NURSING ASSESSMENT: FALL RISK (19:27 CJEF) FALL RISK: Total score 0, No risk for fall. [place] II FALL RISK: Able to rise in a single movement; no loss of balance with steps(0), Total score 0, Score less than 5. Patient not high risk for falls. NURSING ASSESSMENT: SKIN (19:27 CJEF) SKIN: Skin assessment findings include skin warm, Skin dry, Skin normal in color. JUDITH SCALE: (4) Sensory perception has no impairment, (4) Skin is rarely moist, (4) Patient walks frequently, (4) No mobility limitations, (3) Adequate nutrition, (3) Patient has no apparent problem moving, Judith Risk Total: 22. NOTES: Patient tolerated procedure well. SAFETY: Side rails up, Cart/Stretcher in lowest position, Family at bedside, Call light within reach, Hospital ID band on. NURSING PROCEDURE: AVIATION NEUROPSYCHOLOGIST (19:30 CJEF) PATIENT IDENTIFIER: Patient actively involved in identification process, Patient's identity verified by patient stating name, Patient's identity verified by patient stating date. AVIATION NEUROPSYCHOLOGIST: Patient placed on non-invasive blood pressure monitor, with disposable blood pressure cuff applied, Patient placed on continuous pulse oximetry, Adult/pediatric oxisensor applied. FOLLOW-UP: After procedure, alarms set and on, After procedure, patient tolerating monitoring. NOTES: Patient tolerated procedure well. SAFETY: Side rails up, Cart/Stretcher in lowest position, Family at bedside, Call light within reach, Hospital ID band on. NURSING PROCEDURE: DISCHARGE NOTE (20:38 CJEF) DISCHARGE: Patient discharged to home, ambulating without assistance, friend driving, accompanied by friend, Summary of Care printed/ provided, Patient requested and was provided an electronic copy of Discharge Instructions, Transition record given to patient, Discharge instructions given to patient, Simple or moderate discharge teaching performed, Prescriptions given and instructions on side effects given, Medication reconciliation form given, Above person(s) verbalized understanding of discharge instructions and follow-up care, Patient treated and evaluated by physician. BELONGINGS: Belongings remain with patient. NOTES: Patient tolerated procedure well. SAFETY: Side rails up, Cart/Stretcher in lowest position, Family at bedside, Call light within reach, Hospital ID band on. NURSING PROCEDURE: IV &a-1R&a+25V*p+0X*e6283Q*c202B*c15G*c2P*p-0X&a-25V&a+1R Name: Lenny Muller : 1970 M46 MedRec: [id number] AcctNum: [id number] Prepared: [place] Aug 15, 2016 20:50 by Interface Page 3 of 13 pMD [facility] EMERGENCY RECORD PATIENT IDENITIFIER: Patient actively involved in identification process, Patient's identity verified by patient stating name, Patient's identity verified by patient stating date. (19:35 CJEF) IV SITE 1: IV therapy indicated for hydration, IV therapy indicated for medication administration, IV established, to the left antecubital, using an 18 gauge catheter, in one attempt, IV site prepped with CHLORAPREP, Saline lock established, Flushed with normal saline (mls): 10, Labs drawn at time of placement, labeled in the presence of the patient and sent to lab. (19:35 CJEF) FOLLOW-UP SITE 1: After procedure, sterile transparent dressing applied. (19:35 CJEF) After procedure, 2x2 dressing applied, IV discontinued, due to patient being discharged, catheter intact. (20:37 CJEF) NOTES: Patient tolerated procedure well. (19:35 CJEF) SAFETY: Side rails up, Cart/Stretcher in lowest position, Family at bedside, Call light within reach, Hospital ID band on. (19:35 CJEF) NURSING PROCEDURE: LAB DRAW (19:55 CJEF) PATIENT IDENTIFIER: Patient actively involved in identification process, Patient's identity verified by patient stating name, Patient's identity verified by patient stating date. LAB DRAW: Initial lab draw performed, from vascular access device, Notes: LAB AT [facility] TO COLLECT BLOOD. NOTES: Patient tolerated procedure well. SAFETY: Side rails up, Cart/Stretcher in lowest position, Family at bedside, Call light within reach, Hospital ID band on. NURSING PROCEDURE: NURSE NOTES NURSES NOTES: Notes: PT REQUESTING TO BE PLACED IN ROOM WITH TV IN ORDER TO WATCH SUPER BOWL. (19:28 CJEF) Notes: PT PROVIDED URINAL FOR URINE SAMPLE. (19:39 CJEF) NURSING PROCEDURE: TRANSPORT TO TESTS PATIENT IDENTIFIER: Patient actively involved in identification process, Patient's identity verified by patient stating name, Patient's identity verified by patient stating date. (19:42 CJEF) TRANSPORT TO TESTS: Transport indicated to facilitate diagnosis, Patient transported to CT scan, via wheelchair, Accompanied by x-ray corn lab technician. (19:42 CJEF) FOLLOW-UP: After procedure, patient returned to emergency department. (19:50 CJEF) NOTES: Patient tolerated procedure well. (19:42 CJEF) SAFETY: Side rails up, Cart/Stretcher in lowest position, Family at bedside, Call light within reach, Hospital ID band on. (19:42 CJEF) NURSING PROCEDURE: URINE COLLECTION (19:41 CJEF) &a-1R&a+25V*p+0X*r1286U*c202B*c15G*c2P*p-0X&a-25V&a+1R Name: Lenny Muller Juan : 1970 M46 MedRec: [id number] AcctNum: [id number] Prepared: [place] Aug 15, 2016 20:50 by Interface Page 4 of 13 [facility] EMERGENCY RECORD PATIENT IDENTIFIER: Patient actively involved in identification process, Patient's identity verified by patient stating name, Patient's identity verified by patient stating date. URINE COLLECTION MALE: Urine collected by void, output amount (mL) 15, urine yellow in color, and bloody. NOTES: Patient tolerated procedure well. SAFETY: Side rails up, Cart/Stretcher in lowest position, Family at bedside, Call light within reach, Hospital ID band on. ORDER DETAILS Order Name: CBC with Differential, Status: Active, Time: 19:32 08/15/2016, User: VEE, - Ordered for: MD Valdez Lloyd, - Entered by: MD Valdez Lloyd - [place] Aug 15, 2016 19:32, - Quantity: 1, Order Name: Comprehensive Metabolic Panel, Status: Active, Time: 19:32 08/15/2016, User: VEE, - Ordered for: MD Valdez Lloyd, - Entered by: MD Valdez Lloyd - [place] Aug 15, 2016 19:32, - Quantity: 1, Order Name: CT Stone Protocol, Status: Active, Time: 19:33 08/15/2016, User: VEE, - Ordered for: MD Valdez Lloyd, - Entered by: MD Valdez Lloyd - Sun Aug 15, 2016 19:33, - Quantity: 1, Order Name: Culture, Urine, Status: Active, Time: 19:31 08/15/2016, User: VEE, - Ordered for: MD Valdez Lloyd, - Entered by: MD Valdez Lloyd - Sun Aug 15, 2016 19:31, - Quantity: 1, Order Name: SALINE LOCK, Status: Done, Time: 19:41 08/15/2016, User: SUZE, - Ordered for: MD Valdez Lloyd, - Entered by: MD Valdez Lloyd - Sun Aug 15, 2016 19:32, - Quantity: 1, Order Name: Urinalysis w/ Rflx Microscopic, Status: Active, Time: 19:31 08/15/2016, User: VEE, - Ordered for: MD Valdez Lloyd, - Entered by: MD Valdez Lloyd - Sun Aug 15, 2016 19:31, - Quantity: 1. MEDICATION ADMINISTRATION SUMMARY Drug Name: [place], Dose Ordered: 10-325 mg, Route: Oral, Status: Given, Time: 20:37 08/15/2016, Drug Name: Duramorph (PF), Dose Ordered: 4 mg, Route: IV Push, Status: Given, Time: 20:08 08/15/2016, Drug Name: Toradol injection, Dose Ordered: 30 mg, Route: IV Push, Status: Given, Time: 19:52 08/15/2016, &a-1R&a+25V*p+0X*a3956T*c202B*c15G*c2P*p-0X&a-25V&a+1R Name: Lenny Muller : 1970 6 MedRec: [id number] AcctNum: [id number] Prepared: [place] Aug 15, 2016 20:50 by Interface Page 5 of 13 pMD [facility] EMERGENCY RECORD Drug Name: Zofran intravenous, Dose Ordered: 8 mg, Route: IV Push, Status: Given, Time: 19:52 08/15/2016, Drug Name: *sodium chloride 0.9 % intravenous, Dose Ordered: 1 L, Route: IV Fluid Infusion, Status: Given, Time: 19:51 08/15/2016, *Additional information available in notes, Detailed record available in Medication Service section. MEDICATION SERVICE Duramorph (PF): Order: Duramorph (PF) (morphine sulfate/preservative free) - Dose: 4 mg : IV Push POTENTIAL ALLERGY REACTION: 'codeine sulfate [codeine/codeine sulfate]' - Reviewed with patient, pt says can safely take this medicine Schedule: Now Ordered by: Ermias Valdez MD Entered by: MD Dana Hamm Aug 15, 2016 20:03 Documented as given by: Linda Lundy RN [place] Aug 15, 2016 20:08 Patient, Medication, Dose, Route and Time verified prior to administration. Amount given: 4 MG, IV SITE #1 IVP, subsequent different medication, Slowly, Awake and alert- acceptable, Connections checked prior to administration, Line traced prior to administration, Catheter placement confirmed via flush prior to administration, IV site without signs or symptoms of infiltration during medication administration, No swelling during administration, No drainage during administration, IV flushed after administration, Correct patient, time, route, dose and medication confirmed prior to administration, Patient advised of actions and side-effects prior to administration, Allergies confirmed and medications reviewed prior to administration, Patient tolerated procedure well, Patient in position of comfort, Side rails up, Cart in lowest position, Family at bedside. : Follow Up : Response assessment performed, No signs or symptoms of allergic reaction noted, Decreased pain, Advised not to ambulate without assistance, Patient in position of comfort, Side rails up, Cart in lowest position, Family at bedside. (20:28 [facility]) [place]: Order: [place] (hydrocodone bitartrate/acetaminophen) - Dose: 10-325 mg : Oral POTENTIAL ALLERGY REACTION: 'codeine sulfate [codeine/codeine sulfate]' - Reviewed with patient, pt says can safely take this medicine Schedule: Now Ordered by: Ermias Valdez MD Entered by: MD [place] Hamm Aug 15, 2016 20:29 Documented as given by: Linda Lundy RN [place] Aug 15, 2016 20:37 Patient, Medication, Dose, Route and Time verified prior to administration. Amount given: 10-325, Site: Medication administered P.O., Mouth check performed after administration of medication, Patient appears Awake and alert- acceptable, Correct patient, time, route, dose and &a-1R&a+25V*p+0X*j2546G*c202B*c15G*c2P*p-0X&a-25V&a+1R Name: Lenny Muller : 1970 6 MedRec: [id number] AcctNum: [id number] Prepared: [place] Aug 15, 2016 20:50 by Interface Page 6 of 13 pMD [facility] EMERGENCY RECORD medication confirmed prior to administration, Patient advised of actions and side-effects prior to administration, Allergies confirmed and medications reviewed prior to administration, Patient tolerated procedure well, Patient in position of comfort, Side rails up, Cart in lowest position, Family at bedside. : Follow Up : Response assessment performed, No signs or symptoms of allergic reaction noted, Advised not to ambulate without assistance, Patient in position of comfort, Side rails up, Cart in lowest position, Family at bedside. (20:38 [facility]) sodium chloride 0.9 % intravenous: Order: sodium chloride 0.9 % intravenous (0.9 % sodium chloride) - Dose: 1 L : IV Fluid Infusion Notes: (Bolus) after bolus, lock Ordered by: Ermias Valdez MD Entered by: MD [place] Hamm Aug 15, 2016 19:36 Documented as given by: Linda Lundy RN [place] Aug 15, 2016 19:51 Patient, Medication, Dose, Route and Time verified prior to administration. Amount given: 1 L, IV SITE #1 IV fluids established for hydration, IV SITE #1 into left antecubital, IV SITE #1 1st bag hung, IV SITE #1 bolus of 1000 ml established, via primary tubing, Awake and alert- acceptable, Connections checked prior to administration, Line traced prior to administration, Catheter placement confirmed via flush prior to administration, IV site without signs or symptoms of infiltration during medication administration, No swelling during administration, No drainage during administration, IV flushed after administration, Correct patient, time, route, dose and medication confirmed prior to administration, Patient advised of actions and side-effects prior to administration, Allergies confirmed and medications reviewed prior to administration, Patient tolerated procedure well, Patient in position of comfort, Side rails up, Cart in lowest position, Family at bedside. : Follow Up : Response assessment performed, No signs or symptoms of allergic reaction noted, _IV SITE #1:_, IV fluid infusion discontinued, on [place] Aug 15, 2016 20:28, 40 minutes, ., Total amount infused: 1 L, Advised not to ambulate without assistance, Patient in position of comfort, Side rails up, Cart in lowest position, Family at bedside. (20:28 [facility]) Toradol injection: Order: Toradol injection (ketorolac tromethamine) - Dose: 30 mg : IV Push Schedule: Now Ordered by: Ermias Valdez MD Entered by: Ermias Valdez MD [place] Aug 15, 2016 19:43 Documented as given by: Linda Lundy RN [place] Aug 15, 2016 19:52 Patient, Medication, Dose, Route and Time verified prior to administration. Amount given: 30 MG, IV SITE #1 IVP, subsequent different medication, Slowly, Awake and alert- acceptable, Connections checked prior to administration, Line traced prior to administration, Catheter placement confirmed via flush prior to administration, IV &a-1R&a+25V*p+0X*a8332R*c202B*c15G*c2P*p-0X&a-25V&a+1R Name: Lenny Muller : 1970 M46 MedRec: [id number] AcctNum: [id number] Prepared: [place] Aug 15, 2016 20:50 by Interface Page 7 of 13 pMD [facility] EMERGENCY RECORD site without signs or symptoms of infiltration during medication administration, No swelling during administration, No drainage during administration, IV flushed after administration, Correct patient, time, route, dose and medication confirmed prior to administration, Patient advised of actions and side-effects prior to administration, Allergies confirmed and medications reviewed prior to administration, Patient tolerated procedure well, Patient in position of comfort, Side rails up, Cart in lowest position, Family at bedside. : Follow Up : Response assessment performed, No signs or symptoms of allergic reaction noted, Advised not to ambulate without assistance, Patient in position of comfort, Side rails up, Cart in lowest position, Family at bedside. (20:28 [facility]) Zofran intravenous: Order: Zofran intravenous (ondansetron HCl) - Dose: 8 mg : IV Push Schedule: Now Ordered by: Ermias Valdez MD Entered by: MD [place] Hamm Aug 15, 2016 19:34 Documented as given by: Linda Lundy RN [place] Aug 15, 2016 19:52 Patient, Medication, Dose, Route and Time verified prior to administration. Amount given: 8 MG, IV SITE #1 IVP, subsequent different medication, Slowly, Awake and alert- acceptable, Connections checked prior to administration, Line traced prior to administration, Catheter placement confirmed via flush prior to administration, IV site without signs or symptoms of infiltration during medication administration, No swelling during administration, No drainage during administration, IV flushed after administration, Correct patient, time, route, dose and medication confirmed prior to administration, Patient advised of actions and side-effects prior to administration, Allergies confirmed and medications reviewed prior to administration, Patient tolerated procedure well, Patient in position of comfort, Side rails up, Cart in lowest position, Family at bedside. : Follow Up : Response assessment performed, No signs or symptoms of allergic reaction noted, Advised not to ambulate without assistance, Patient in position of comfort, Side rails up, Cart in lowest position, Family at bedside. (20:29 [facility]) HPI FLANK PAIN (19:45 LLDO) CHIEF COMPLAINT: Patient presents for evaluation of flank pain, on the right, Patient presents for evaluation of abdominal pain, Patient presents for evaluation of ;;2 hours dye can operator began having right cva pain radiating into right LQ and then into scrotum. sudden and severe. crampy. wax and wane but never fully clears. HISTORIAN: History provided by patient, friend. LOCATION MALE: Symptoms are localized. QUALITY: Pain is dull in nature, described as aching, described as BECOMES SHARP WITH MOVEMENT OR PALPATION. SEVERITY: Maximum severity of symptoms severe, Currently symptoms are moderate. TIME COURSE: Sudden onset of symptoms, There &a-1R&a+25V*p+0X*t3157T*c202B*c15G*c2P*p-0X&a-25V&a+1R Name: Yohana Lenny W : 1970 M46 MedRec: [id number] AcctNum: [id number] Prepared: Dana Aug 15, 2016 20:50 by Interface Page 8 of 13 pMD [facility] EMERGENCY RECORD has been no change in the patient's symptoms over time, are constant. ASSOCIATED WITH MALE: Associated with loss of appetite, Associated with nausea, Associated with urinary tract infection signs or symptoms, dysuria, No associated vomiting. EXACERBATED BY: Patient's condition exacerbated by nothing. RELIEVED BY: Patient's condition relieved by nothing. ROS CONSTITUTIONAL: Negative constitutional review of systems, Historian denies chills. (19:47 LLDO) EYES: Negative eye review of systems, Historian denies eye pain, denies eye redness, denies eye discharge. (19:51 LLDO) ENT: Negative ears, nose, throat review of systems, Historian denies otalgia, denies rhinorrhea, denies sinus pain, denies sore throat. (19:51 LLDO) CARDIOVASCULAR: Negative cardiovascular review of systems, Historian denies chest pain, no radiation, Historian denies diaphoresis, denies paroxysmal nocturnal dyspnea, denies syncope. (19:51 LLDO) RESPIRATORY: Historian reports cough, reports sputum. described as thick, yellow, Historian denies stridor, denies wheezing. has had cough and chest congestion for about a week. some headache and some sore throat d.t. post-nasal drainage. (19:51 LLDO) GI: Historian reports abdominal pain, reports anorexia, reports appetite changes, denies constipation, denies diarrhea, denies hematemesis, denies hematochezia, denies jaundice, denies melena, reports nausea, denies stool changes, denies vomiting. (19:47 LLDO) GENITOURINARY MALE: Historian reports dysuria. (19:47 LLDO) MUSCULOSKELETAL: Historian reports back pain. (19:47 LLDO) NEUROLOGIC: Negative neurologic review of systems, Historian denies confusion, denies focal weakness, denies mental status changes, denies sensory changes. (19:51 LLDO) HEMO/LYMPHATIC: Normal hematologic/lymphatic system review, Historian denies abnormal blood clotting, denies gum bleeding, denies petechiae. (19:51 LLDO) ALLERGIC/IMMUNOLOGIC: Normal allergy/immunologic system review, Historian denies eczema, denies environmental allergies, denies food allergies. (19:51 LLDO) PSYCHIATRIC: Negative psychiatric review of systems, Historian denies alcohol abuse, denies anxiety, denies depression, denies drug abuse, denies hallucinations. (19:51 LLDO) NOTES: All systems reviewed, negative except as described above. (19:47 LLDO) PAST MEDICAL HISTORY &a-1R&a+25V*p+0X*h2006U*c202B*c15G*c2P*p-0X&a-25V&a+1R Name: Lenny Muller : 1970 M46 MedRec: [id number] AcctNum: [id number] Prepared: Dana Aug 15, 2016 20:50 by Interface Page 9 of 13 [facility]MD [facility] HOSPITAL EMERGENCY RECORD MEDICAL HISTORY: Flu vaccine not up to date, Tetanus immunization up to date, Pneumococcal vaccine up to date, Past medical history includes history of hypertension, CHRONIC BACK - NEUROPATHY. Renal Disease Stage II. (19:25 CJEF) MALE SURGICAL HISTORY: Surgical history of cholecystectomy, FUSION L-5/S-1, RIGHT KNEE LAMMY L4-5/ S1 X 2, Surgical history of appendectomy, Surgical history of tonsillectomy. Plate in Right Hand. VERIFIED 03/04/16. VERIFIED 06/08/16. (19:25 CJEF) PSYCHIATRIC HISTORY: Psychiatric history includes, anxiety, Notes: DEPRESSION ANGER EXPLOSIVE DO. anxiety. (19:25 CJEF) SOCIAL HISTORY: Patient drinks socially, Patient is a former drug user, Patient currently uses tobacco, smokes cigarettes, Patient smokes 1.5 packs per day, Lives at home, with family, Patient drinks socially, Patient is a former drug user, Patient currently uses tobacco, smokes cigarettes, daily, Patient smokes 1.5 packs per day, Lives at home, with family, Patient is a former drug user, abused marijuana, Drug history notes: k2, Patient currently uses tobacco, smokes cigarettes, daily, Patient smokes 2 packs per day, Lives at home, with family, Patient drinks socially, Patient formerly uses drugs, abuses marijuana, Drug history notes: K2. PT HAS "BEEN CLEAN FOR ABOUT ONE YEAR". Patient currently uses tobacco, Patient smokes 1.5 packs per day. (19:25 CJEF) FAMILY HISTORY: Family istory is not significant, Family history is non-contributory to this case. (19:25 CJEF) NOTES: Nursing records reviewed, Agree with nursing records, Medication list reviewed. (19:51 LLDO) PHYSICAL EXAM CONSTITUTIONAL: Vital signs reviewed, Patient afebrile, Pulse normal, Blood pressure normal, Respiratory rate normal, Patient appears, uncomfortable, Patient appears in pain, in moderate pain distress, INTERMITTENTLY SEVERE, Patient alert and oriented to person, place and time. (19:49 LLDO) HEAD: Head exam normal, Head exam included findings of head atraumatic, normocephalic. (19:51 LLDO) EYES: Eye exam normal, Eye exam included findings of eyelids normal to inspection, Pupils equally round and reactive to light, Extraocular muscles intact. (19:51 LLDO) ENT: ENT exam normal, Ear exam normal, Nose exam normal. (19:51 LLDO) NECK: Neck exam normal, Neck exam included findings of normal range of motion, Trachea midline, no meningeal signs, no tenderness. (19:51 LLDO) RESPIRATORY CHEST: Respiratory exam included findings of no respiratory distress, Breath sounds not clear, Rales present, Chest exam included findings of chest movement symmetrical, Chest expansion equal, no tenderness, RALES MILD AND &a-1R&a+25V*p+0X*n6112D*c202B*c15G*c2P*p-0X&a-25V&a+1R Name: Lenny Muller Juan : 1970 M46 MedRec: [id number] AcctNum: [id number] Prepared: Dana Aug 15, 2016 20:50 by Interface Page 10 of 13 pMD [facility] EMERGENCY RECORD DIFFUSE. (19:51 LLDO) CARDIOVASCULAR: Cardiovascular assessment normal, Cardiovascular exam included findings of heart rate regular rate and rhythm, Heart sounds normal. (19:51 LLDO) ABDOMEN MALE: Abdominal exam included findings of abdomen tender, to the right lower quadrant, mild intensity, Bowel sounds normal, Liver normal, Spleen normal, no distension, no mass, no pulsatile masses, no peritoneal signs, Rovsing's sign absent. (19:49 LLDO) BACK: Back exam included findings of normal inspection, range of motion normal, Costovertebral angle tenderness, on the right, no Scoliosis, no pain with straight leg raise. (19:49 LLDO) UPPER EXTREMITY: Upper extremity exam normal, Upper extremity exam included findings of inspection normal, Range of motion normal. (19:51 LLDO) LOWER EXTREMITY: Lower extremity exam normal, Lower extremity exam included findings of inspection normal, Range of motion normal. (19:51 LLDO) NEURO: Neuro exam normal, Neuro exam findings include patient oriented to person, place and time, Speech normal, Arthur coma scale 15. (19:51 LLDO) SKIN: Skin exam normal, Skin exam included findings of skin warm, dry, and normal in color, no rash. (19:51 LLDO) PSYCHIATRIC: Psychiatric exam normal, Psychiatric exam included findings of patient oriented to person place and time, Normal affect, Judgment normal. (19:51 LLDO) EVENTS TRANSFER: Triage to Emergency Triage. (Dana Aug 15, 2016 19:22 CJEF) Emergency Triage to Main ED -01. (19:27 CJEF) Emergency Main ED -01 to -05. (19:28 CJEF) Removed from Emergency Main ED -05. (20:38 CJEF) DOCTOR NOTES (20:19 LLDO) TEXT: punctate stone at right UVJ. should pass soon. PROBLEM LIST No recorded problems DIAGNOSIS (20:22 LLDO) FINAL: PRIMARY: ureteral stone w/ colic, R, ADDITIONAL: Acute bronchitis. DISPOSITION PATIENT: Disposition Type: Discharge, Disposition: *Discharge Home. (20:22 LLDO) Patient left the department. (20:38 CJEF) &a-1R&a+25V*p+0X*f6322B*c202B*c15G*c2P*p-0X&a-25V&a+1R Name: Lenny Muller Juan : 1970 M46 MedRec: [id number] AcctNum: [id number] Prepared: Dana Aug 15, 2016 20:50 by Interface Page 11 of 13 pMD [facility] EMERGENCY RECORD INSTRUCTION (20:25 LLDO) DISCHARGE: URETERAL STONE W COLIC, BRONCHITIS, ABX TX (ADULT). FOLLOWUP: Follow up with Primary Care Physician in 2-3 days. SPECIAL: Follow-up with your PCP. PRESCRIPTION (20:24 LLDO) Cipro tablet: TABLET : 500 mg : ORAL : Quantity: 1 Unit: tab(s) Route: ORAL Schedule: 2 times a day Dispense: 20 May substitute. Refills: No Refills . NOTES: No Refills. Phenergan DM: SYRUP : : ORAL : Quantity: 1-2 Unit: teaspoon Route: ORAL Schedule: every 4 hours prn Dispense: 180 Unit: mL May substitute. Refills: No Refills . NOTES: ^s=No Refills No Refills. IMAGING *SUPPLY CHARGE SHEET: Image captured from scanner. (20:38 CJEF) *DISCHARGE INSTRUCTIONS RECEIPT: Image captured from scanner. (20:39 CJEF) ADMIN DIGITAL SIGNATURE: MD Valdez Lloyd. (20:26 LLDO) MD Valdez Lloyd. (20:29 LLDO) RESULTS LABORATORY: Urine Microscopic Collection DT: [place] Aug 15, 2016 19:50, See comment below , Comment please do micro . (19:53 CJEF) Urinalysis w/ Rflx Microscopic Collection DT: [place] Aug 15, 2016 19:50, See comment below , Comment please do micro , Color Yellow , Range (Yellow), Clarity Slightly Cloudy , Range (Clear), Specific [place], Urine 1.020 , Range (1.005-1.030), pH, Urine 7.0 , Range (5.0-9.0), Leukocyte Negative , Range (Negative), Nitrite Negative , Range (Negative), Protein, Urine (Dipstick) Trace mg/dL, Range (Neg-Trace), Glucose, Urine (Dipstick) Negative mg/dL, Range (Negative), Ketone, Urine Negative mg/dL, Range (Negative), Urobilinogen 0.2 mg/dL, Range (0.2-1.0), Bilirubin Negative , Range (Negative), *Blood, Urine Large - H , Range (Negative). (19:53 CJEF) Urine Microscopic Collection DT: [place] Aug 15, 2016 19:50, See comment below , Comment please do micro , *RBC/HPF GREATER THAN 50-TNTC HPF, * - H , Range (0-3), *WBC/HPF 4-6 - H HPF, Range (0-3), Bacteria/HPF Rare-Few HPF, Range (None Seen). (19:57 [facility]) &a-1R&a+25V*p+0X*f4081H*c202B*c15G*c2P*p-0X&a-25V&a+1R Name: Lenny Muller : 1970 6 MedRec: [id number] AcctNum: [id number] Prepared: TueAug 15, 2016 20:50 by Interface Page 12 of 13 pMD [facility] EMERGENCY RECORD Urinalysis w/ Rflx Microscopic Collection DT: TueAug 15, 2016 19:50, See comment below , Comment please do micro , Color Yellow , Range (Yellow), Clarity Slightly Cloudy , Range (Clear), Specific [place], Urine 1.020 , Range (1.005-1.030), pH, Urine 7.0 , Range (5.0-9.0), Leukocyte Negative , Range (Negative), Nitrite Negative , Range (Negative), Protein, Urine (Dipstick) Trace mg/dL, Range (Neg-Trace), Glucose, Urine (Dipstick) Negative mg/dL, Range (Negative), Ketone, Urine Negative mg/dL, Range (Negative), Urobilinogen 0.2 mg/dL, Range (0.2-1.0), Bilirubin Negative , Range (Negative), *Blood, Urine Large - H , Range (Negative). (19:57 [facility]) Hernandez: SUZE=DENISE Lundy, Linda BAXTER=MD José Miguel, Ermias &a-1R&a+25V*p+0X*h3652B*c202B*c15G*c2P*p-0X&a-25V&a+1R Name: Lenny Muller : 1970 6 MedRec: [id number] AcctNum: [id number] Prepared: TueAug 15, 2016 20:50 by Interface Page 13 of 13 D [facility] MEDICATION RECONCILIATION You were seen in the Emergency Department on: TueAug 15, 2016 KNOWN ALLERGIES codeine (Unconfirmed) codeine sulfate: - TAKES BENADRY WITH IT MEDICATIONS GIVEN WHILE IN THE EMERGENCY DEPARTMENT Zofran intravenous (ondansetron HCl) - Dose: 8 milligram(s) : IV Push sodium chloride 0.9 % intravenous (0.9 % sodium chloride) - Dose: 1 liter(s) : IV Fluid Infusion Toradol injection (ketorolac tromethamine) - Dose: 30 milligram(s) : IV Push Duramorph (PF) (morphine sulfate/preservative free) - Dose: 4 milligram(s) : IV Push [place] (hydrocodone bitartrate/acetaminophen) - Dose: 10-325 milligram(s) : Oral HOME MEDICATIONS CONTINUE PRESCRIBED carBAMazepine : CAPSULE,EXTENDED RELEASE MULTIPHASE 12HR : Strength - 200 mg : ORAL Continue as prescribed Patient had been takin tab(s) Oral 2 times a day. gabapentin : CAPSULE : Strength - 300 mg : ORAL Continue as prescribed Patient had been takin tab(s) Oral 3 times a day. meTOPROLOL tartrate : TABLET : Strength - 25 mg : ORAL Continue as prescribed Patient had been takin tab(s) Oral once a day (at bedtime). Comment: NON-COMPLIANT. nortriptyline : CAPSULE : Strength - 50 mg : ORAL Continue as prescribed Patient had been takin mg Oral once a day (at bedtime). Comment: UNSURE OF EXACT DOSE. SINEquan : CAPSULE : Strength - 100 mg : ORAL Continue as prescribed Patient had been takin cap(s) Oral See Notes. Comment: 1 or 2 at bedtime. &a-1R&a+25V*p+0X*o1528G*c202B*c15G*c2P*p-0X&a-25V&a+1R Name: Lenny Muller Juan : 1970 M46 MedRec: [id number] AcctNum: [id number] Prepared: Dana Aug 15, 2016 20:50 by Interface pMD [facility] MEDICATION RECONCILIATION TEGretol : TABLET : Strength - 200 mg : ORAL Continue as prescribed Patient had been takin tab(s) Oral 3 times a day. Xanax : TABLET : Strength - 1 mg : ORAL Continue as prescribed Patient had been takin tab(s) Oral See Notes. Comment: 1/2 to 1 three times a day; if neededseventy per month maximum. Notes from the emergency department Reviewed with family Reviewed with patient PRESCRIPTIONS (2) Printed (2) Cipro tablet : TABLET : 500 mg : ORAL Quantity: 1, Unit: tab(s), Route: ORAL, Schedule: 2 times a day, Dispense: 20 &a-1R&a+25V*p+0X*s7787F*c202B*c15G*c2P*p-0X&a-25V&a+1R Name: Lenny Muller : 1970 M46 MedRec: [id number] AcctNum: [id number] Prepared: Dana Aug 15, 2016 20:50 by Interface pMD [facility]
--- NOTE | 2016-08-15 22:54 | CT ---
CT ABDOMEN AND PELVIS WITHOUT CONTRAST: History: 46-year-old male with right flank pain, burning with urination. FINDINGS: Absent of oral and IV contrast reduces the sensitivity of the exam for evaluation of solid organ and bowel. Comparison is made with exam of 02-09-16. The previously noted punctate calculus in the right kidney is not seen on the current exam. There i s a punctate calculus at the right UVJ. No calculi are seen in either kidney, either ureter or the urinary bladder. No hydroureter or nephrosis are seen on either side. No free air free fluid is seen in the abdomen or pelvis. The lung bases are clear. The patient is post cholecystectomy. There are vascular calcifications without evidence of aneurysmal dilatation o f the abdominal aorta. There are post op changes at L5-S1 level with metallic hardware on the right . IMPRESSION: Punctate calculus at the right UVJ without significant hydroureteronephrosis. POS: MILENA
== END 2016-08-15 20:38 | disposition home or self-care (01) ==
LOC: MADERS 19:14
DX: N20.1 Calculus of ureter (principal); J20.9 Acute bronchitis, unspecified; I10 Essential (primary) hypertension; F41.9 Anxiety disorder, unspecified; F17.210 Nicotine dependence, cigarettes, uncomplicated; Z79.899 Other long term (current) drug therapy
CPT/HCPCS: 74176; 80053; 81003; 81015; 85025; 87086; 96361; 96374; 96375; J1885; J2270; J2405; J7050

== ENCOUNTER 2016-09-15 11:50 | Emergency (ER) | payer SELFPAY ==
[2016-09-15] MEDS ORDERED: Benzonatate 100 MG CAP ONE (12:38)
[2016-09-15] MEDS ORDERED: AMOXicillin 250 MG CAP ONE (12:38)
== END 2016-09-15 12:47 | disposition home or self-care (01) ==
LOC: MADERS 11:50
DX: J20.9 Acute bronchitis, unspecified (principal); F41.9 Anxiety disorder, unspecified; F32.9 Major depressive disorder, single episode, unspecified; F17.210 Nicotine dependence, cigarettes, uncomplicated
CPT/HCPCS: 99283

== ENCOUNTER 2017-01-11 08:43 | Emergency (ER) | payer SELFPAY ==
[2017-01-11] MEDS ORDERED: Metoclopramide HCl 10 MG/2 ML VIAL ONE (09:27)
[2017-01-11] MEDS ORDERED: Ondansetron HCl/PF 4 MG/2 ML Vial ONE (09:27)
[2017-01-11] MEDS ORDERED: diphenhydrAMINE HCl 50 MG/ML 1 ML VIAL ONE (09:27)
[2017-01-11] MEDS ORDERED: Ketorolac Tromethamine 30 MG/ML VIAL ONE (09:27)
== END 2017-01-11 11:20 | disposition home or self-care (01) ==
LOC: MADERS 08:43
DX: G43.909 Migraine, unspecified, not intractable, without status migrainosus (principal); F43.0 Acute stress reaction; I12.9 Hypertensive chronic kidney disease with stage 1 through stage 4 chronic kidney disease, or unspecified chronic kidney disease; N18.2 Chronic kidney disease, stage 2 (mild); Z79.899 Other long term (current) drug therapy
CPT/HCPCS: 96361; 96374; 96375; J1200; J1885; J2405; J2765; J7050

== ENCOUNTER 2017-06-19 14:04 | Emergency (ER) | payer SELFPAY ==
[2017-06-19] MEDS ORDERED: Clindamycin 150 MG CAP ONE (15:09)
== END 2017-06-19 15:41 | disposition home or self-care (01) ==
LOC: MADERS 14:04
DX: H00.16 Chalazion left eye, unspecified eyelid (principal); H00.036 Abscess of eyelid left eye, unspecified eyelid; I10 Essential (primary) hypertension; F41.9 Anxiety disorder, unspecified; F32.9 Major depressive disorder, single episode, unspecified; F17.210 Nicotine dependence, cigarettes, uncomplicated; Z79.899 Other long term (current) drug therapy
CPT/HCPCS: 99283

== ENCOUNTER 2017-06-25 16:00 | Emergency (ER) | payer SELFPAY | END 2017-06-25 19:29 | disposition home or self-care (01) | LOC: MADERS 16:00 | DX: Z76.0 Encounter for issue of repeat prescription (principal); F31.30 Bipolar disorder, current episode depressed, mild or moderate severity, unspecified; F41.9 Anxiety disorder, unspecified; F17.210 Nicotine dependence, cigarettes, uncomplicated; Z79.899 Other long term (current) drug therapy | CPT/HCPCS: 99282 ==

== ENCOUNTER 2017-12-02 10:22 | Emergency (ER) | payer SELFPAY | END 2017-12-02 12:07 | disposition home or self-care (01) | LOC: MADERS 10:22 | DX: Z76.0 Encounter for issue of repeat prescription (principal); I12.9 Hypertensive chronic kidney disease with stage 1 through stage 4 chronic kidney disease, or unspecified chronic kidney disease; N18.2 Chronic kidney disease, stage 2 (mild); G62.9 Polyneuropathy, unspecified; F41.9 Anxiety disorder, unspecified; F32.9 Major depressive disorder, single episode, unspecified; R45.4 Irritability and anger; F17.210 Nicotine dependence, cigarettes, uncomplicated; Z79.899 Other long term (current) drug therapy | CPT/HCPCS: 99281 ==

== ENCOUNTER 2018-06-15 15:29 | Emergency (ER) | payer SELFPAY ==
[2018-06-15] MEDS ORDERED: Dexamethasone 4 MG TAB ONE (16:08)
[2018-06-15] MEDS ORDERED: Azithromycin 250 MG TAB ONE (16:08)
[2018-06-15] MEDS ORDERED: Benzonatate 100 MG CAP ONE (16:08)
== END 2018-06-15 16:15 | disposition home or self-care (01) ==
LOC: MADERS 15:29
DX: J04.10 Acute tracheitis without obstruction (principal); B96.89 Other specified bacterial agents as the cause of diseases classified elsewhere; I12.9 Hypertensive chronic kidney disease with stage 1 through stage 4 chronic kidney disease, or unspecified chronic kidney disease; F41.9 Anxiety disorder, unspecified; F17.210 Nicotine dependence, cigarettes, uncomplicated; Z79.899 Other long term (current) drug therapy; N18.2 Chronic kidney disease, stage 2 (mild)
CPT/HCPCS: 99283; J8540